=== PATIENT | female | born 1955 | race Caucasian/White ===

== ENCOUNTER 2023-08-06 09:00 | Outpatient (OUT) | payer MEDICARE, SELFPAY ==
--- NOTE | 2023-08-06 09:05 | CT_ITS ---
[address] [address] Patient Name: TALISHA WEBER MRN: [id number] date: 1955 Sex: F Assigned Patient Location: RAD Current Patient Location: RAD Accession/Order Number: [id number] Exam Date: 08/06/2023 09:32 Report Date: 08/06/2023 10:58 At the request of: LILY COWART Procedure: CT lung screening low-dose EXAMINATION: CT lung screening low-dose HISTORY: Forner Smoker Z87.891 COMPARISON: No relevant comparison available. TECHNIQUE: Axial, Coronal, and Sagittal images were created without the administration of IV contrast material. Dose reduction techniques were achieved by using automated exposure control and/or adjustment of mA and/or kV according to patient size and/or use of iterative reconstruction technique. FINDINGS: LUNGS: Scattered subcentimeter solid pulmonary nodules the largest is identified in the right upper lobe axial image 51 measuring 4.4 mm in diameter and left upper lobe axial image 68 measuring 6 x 4 mm PLEURA: No mass, effusion, or pneumothorax. VASCULATURE: No abnormality. LEANDER: No mass or pathologic adenopathy. MEDIASTINUM: No mass or pathologic adenopathy. CARDIAC: No enlargement or pericardial effusion. Heavy coronary atherosclerosis AORTA: No aortic aneurysm. Mild to moderate atherosclerosis CHEST WALL: No mass or axillary adenopathy BONES: No bone lesion or fracture. Dextrocurvature of the thoracic spine moderate degenerative change. Left shoulder reverse arthroplasty LIMITED ABDOMEN: No suspicious findings. Limited images of the upper abdomen. OTHER: Negative. CT/CT lung screening low-dose IMPRESSION: LUNG SCREENING: Lung-RADS Category 2- Benign Appearance or Behavior. Nodules with a very low likelihood of becoming a clinically active cancer due to size or lack of growth. 2. Continue annual screening with LDCT in 12 months. Electronically authenticated by: ANAND NORRIS Date: 08/06/2023 10:58
--- NOTE | 2023-08-06 09:05 | MM_ITS ---
Patient: TALISHA WEBER Exam Date: 08/06/2023 : 1955 Gender:F Ordering : DR LILY COWART M.D. Admission #: [id number] Family : Order #: [id number] CLICK HERE TO VIEW EXAM RADIOLOGY REPORT PROCEDURE: MM TOMOSYNTHESIS SCREENING BI COMPARISON: MG MAMM SCREEN NELLY W CAD, 08/06/2020. MG MAMM SCREEN NELLY W CAD, 06/06/2019. INDICATIONS: Screening Calculator Name NCI Breast Cancer Risk Assessment Tool 5 Year Breast Cancer Risk Not Reported. Lifetime Breast Cancer Risk Not Reported. Personal Breast Cancer No Personal Ovarian Cancer No Treatments None Family Cancers None LOCATION: [facility] BREAST COMPOSITION: Almost entirely fatty. FINDINGS: DIAGNOSTIC CATEGORY 1--NEGATIVE. RIGHT BREAST: No significant suspicious finding. No significant change has occurred. LEFT BREAST: No significant suspicious finding. No significant change has occurred. RECOMMENDATIONS: ROUTINE MAMMOGRAM AND CLINICAL EVALUATION IN 12 MONTHS. PLEASE NOTE: A NORMAL MAMMOGRAM DOES NOT EXCLUDE THE POSSIBILITY OF BREAST CANCER. A CLINICALLY SUSPICIOUS PALPABLE LUMP SHOULD BE BIOPSIED. Dictated by: Brendan Whitney M.D. on 08/06/2023 at 11:48 Approved by: Brendan Whitney M.D. on 08/06/2023 at 11:55
--- NOTE | 2023-08-06 09:24 | XR_ITS ---
[address] [address] Patient Name: TALISHA WEBER MRN: [id number] date: 1955 Sex: F Assigned Patient Location: [facility] Current Patient Location: RAD Accession/Order Number: [id number] Exam Date: 08/06/2023 09:18 Report Date: 08/06/2023 09:46 At the request of: LILY COWART Procedure: XR DEXA axial skeleton EXAMINATION: XR DEXA axial skeleton HISTORY: Primary Ovarian Failure E28.30 COMPARISON: DEXA bone densitometry 09/02/2018 TECHNIQUE: Dual-energy X-ray absorptiometry (DXA) was performed. FINDINGS: SPINE ANALYSIS: Average bone mineral density is 1.260 g/cm2. T-score (standard deviation relative to young adult mean): 0.7 . +3.7% change since prior study. HIP ANALYSIS: Lowest bone mineral density is within the left femoral trochanter, 0.477 g/cm2. T-score (standard deviation relative to young adult mean): -3.3 . +8.5% change since prior study. XR/XR DEXA axial skeleton IMPRESSION: World [employer] Organization Classification: Osteoporosis - High Fracture Risk Electronically authenticated by: BAILEY ANDERSON Date: 08/06/2023 09:46
== END 2023-08-06 09:01 | disposition home or self-care (01) ==
LOC: RAD 09:00
PROVIDERS: PCP Internal Medicine; Visit Provider Internal Medicine
DX: E28.39 Other primary ovarian failure (principal); Z87.891 Personal history of nicotine dependence; Z12.31 Encounter for screening mammogram for malignant neoplasm of breast; M81.0 Age-related osteoporosis without current pathological fracture
CPT/HCPCS: 71271; 77063; 77067; 77080

== ENCOUNTER 2024-12-18 07:13 | Emergency (ER) | payer MEDICARE, SELFPAY ==
[2024-12-18 07:20] VITALS: BP 180/100; PULSE 77; TEMP 36.5; O2SAT 97; BMI 27.3
--- NOTE | 2024-12-18 07:28 | ECG_ITS ---
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
--- NOTE | 2024-12-18 07:29 | XR_ITS ---
The [address] [address] Patient Name: TALISHA WEBER MRN: [id number] date: 1955 Sex: F Assigned Patient Location: ER Current Patient Location: ER Accession/Order Number: [id number] Exam Date: 12/18/2024 07:50 Report Date: 12/18/2024 08:00 At the request of: BILLY RODRIGUEZ Procedure: XR chest 1V EXAMINATION: XR chest 1V HISTORY: pain COMPARISON: None TECHNIQUE: AP portable FINDINGS: LUNGS: No significant pulmonary parenchymal abnormalities. VASCULATURE: No increased pulmonary vasculature. PLEURA: No pneumothorax, effusion, or pleural thickening. CARDIAC: No cardiomegaly or cardiac silhouette abnormality. MEDIASTINUM: No visible mass or adenopathy. Aortic atherosclerosis BONES: No fracture or visible bone lesion. [Vertebral arthroplasty OTHER: Negative. XR/XR chest 1V IMPRESSION: No acute cardiopulmonary process Electronically authenticated by: ANAND NORRIS Date: 12/18/2024 08:00
--- NOTE | 2024-12-18 07:29 | ED_ITS ---
HPI HPI - General Adult General Chief complaint: Back Pain/Injury Stated complaint: R BACK PAIN, R SIDE RIB PAIN, R SHOULDER PAIN Time Seen by Provider: 12/18/24 07:15 Source: patient and family Mode of arrival: walk-in History of Present Illness HPI narrative: 69-year-old female presents for pain in her thoracic back area which goes around her right side towards the front. She has had this for 4 days and there was no injury. She apparently was admitted at another hospital 4 days ago and kept overnight and tests were run and then she was discharged the next day. She went back there today and they put on a lidocaine patch and they discharged her. No fever cough or vomiting. She does not complain of abdominal pain. Related Data Home Medications ?Medication ?Instructions ?Recorded ?Confirmed budesonide-formoterol HFA 160 1 inh inhalation Q12H 12/18/24 12/18/24 mcg-4.5 mcg/actuation aerosol inhaler (Breyna) bumetanide 1 mg tablet 1 mg PO DAILY 12/18/24 12/18/24 bupropion HCl 150 mg tablet,12 hr 150 mg PO Q12H 12/18/24 12/18/24 sustained-release rdcdgusieh-knyehmwuivzar-rduwljal tab 12/18/24 50 mg-325 mg-40 mg tablet cholecalciferol (vitamin D3) 1,250 1,250 mcg PO .Weekly 12/18/24 12/18/24 mcg (50,000 unit) capsule cyanocobalamin (vitamin B-12) 1,000 mcg IM .Monthly 12/18/24 12/18/24 1,000 mcg/mL injection solution denosumab 60 mg/mL subcutaneous 60 mg subcut Q6M 12/18/24 12/18/24 syringe (Prolia) fluoxetine 20 mg capsule 20 mg PO DAILY 12/18/24 12/18/24 lisinopril 10 mg tablet 10 mg PO DAILY 12/18/24 12/18/24 omeprazole 40 mg capsule,delayed 40 mg PO DAILY 12/18/24 12/18/24 release oxybutynin chloride 5 mg tablet 5 mg PO Q12H 12/18/24 12/18/24 Previous Rx's ?Medication ?Instructions ?Recorded methocarbamol 500 mg tablet 500 mg PO Q8H PRN pain #20 tabs 12/18/24 Allergies Allergy/AdvReac Type Severity Reaction Status Date / Time No Known Drug Allergies Allergy Verified 12/18/24 07:20 Opioid HPI Opioid Management Most Recent Opioid Data: No Data to Display Review of Systems ROS Narrative A ten point review of systems is negative except as noted above. PFSH PFSH Social History Little interest or pleasure in doing things: not at all Feeling down, depressed, or hopeless: not at all Exam Narrative Exam Narrative: Nurses note and vital signs reviewed and patient is not hypoxic. General: The patient appears well and in no apparent distress. Skin: Warm, dry, no pallor noted. There is no rash noted. Head: Normocephalic, atraumatic Eye: Normal conjunctiva, no drainage Ears, Nose, Mouth, and Throat: oral mucosa is moist. Nares patent. Cardiovascular: Regular Rate and Rhythm Respiratory: Patient is in no distress, no accessory muscle use, lungs are clear to auscultation, no wheezing, rales or rhonchi Back: No bruise or rash or focal area of tenderness to palpation. No erythema. GI: Soft and nontender Musculoskeletal: The patient has no evidence of calf tenderness, no pitting edema, symmetrical pulses noted bilaterally Neurological: A&O, normal speech Psychiatric: Cooperative Constitutional Vital Signs, click to edit/add: Last Vital Signs Temp 97.7 F 12/18/24 07:20 Pulse 81 12/18/24 08:20 Resp 20 12/18/24 08:20 BP 180/84 H 12/18/24 08:20 Pulse Ox 96 12/18/24 08:20 O2 Del Method Room Air 12/18/24 08:20 Course Vital Signs Vital signs: Vital Signs Temperature 97.7 F 12/18/24 07:20 Pulse Rate 77 12/18/24 07:20 Respiratory Rate 20 12/18/24 07:20 Blood Pressure 180/100 H 12/18/24 07:20 Pulse Oximetry 97 12/18/24 07:20 Oxygen Delivery Method Room Air 12/18/24 07:20 Temperature 97.7 F 12/18/24 07:20 Pulse Rate 81 12/18/24 08:20 Respiratory Rate 20 12/18/24 08:20 Blood Pressure 180/84 H 12/18/24 08:20 Pulse Oximetry 96 12/18/24 08:20 Oxygen Delivery Method Room Air 12/18/24 08:20 Medical Decision Making MDM Narrative Medical decision making narrative: I obtained records from [facility]. She had negative CTA chest and abdomen. Her workup here is negative as well including troponin. My clinical impression is that this is musculoskeletal. Treatment diagnosis and follow-up were discussed with the patient. Differential Diagnosis Differential Diagnosis: Muscle strain, pneumothorax, pulmonary embolism, aneurysm Medical Records Medical records reviewed: Yes I reviewed the patient's medical records Lab Data Lab results reviewed: Yes I reviewed the patient's lab results Labs: Lab Results 12/18/24 Range/Units 07:43 WBC 5.2 (4.0-11.0) 10^3/uL RBC 4.96 (4.20-5.40) 10^6/uL Hgb 14.3 (12.0-16.0) g/dL Hct 45.1 (36.0-48.0) % MCV 90.9 (81.0-99.0) fL MCH 28.8 (26.7-34.0) pg MCHC 31.7 (29.9-35.2) g/dL RDW 13.7 (11.0-15.0) % Plt Count 178 (150-450) 10^3/uL MPV 10.5 (9.5-13.5) fL Neut % (Auto) 51.2 (43.0-75.0) % Lymph % (Auto) 38.7 (20.5-60.0) % [place] % (Auto) 5.9 (1.7-12.0) % Eos % (Auto) 3.4 (0.9-7.0) % Baso % (Auto) 0.6 (0.2-2.0) % Neut # (Auto) 2.7 (1.4-6.5) 10^3/uL Lymph # (Auto) 2.0 (1.2-3.8) 10^3/uL [place] # (Auto) 0.3 (0.3-0.8) 10^3/uL Eos # (Auto) 0.2 (0.0-0.7) 10^3/uL Baso # (Auto) 0.0 (0.0-0.1) 10^3/uL Abs Immat Gran (auto) 0.01 (0.00-0.03) 10^3/uL Imm/Tot Granulo (auto) 0.2 (0.0-0.5) % Sodium 141 (136-145) mmol/L Potassium 4.9 (3.5-5.1) mmol/L Chloride 104 (98-107) mmol/L Carbon Dioxide 28.1 (21.0-32.0) mmol/L Anion Gap 13.8 BUN 20.0 H (7.0-18.0) mg/dL Creatinine 1.01 (0.55-1.02) mg/dL Est GFR ( Amer) >60 (>=60 mL/min/1.73m^2) Est GFR (Non-Af Amer) 55 L (>=60 mL/min/1.73m^2) BUN/Creatinine Ratio 19.8 Glucose 103 (74-106) mg/dL Calcium 8.7 (8.5-10.1) mg/dL Troponin I High Sens 21.7 (4.0-51.3) pg/mL Imaging Data Chest x-ray: Radiologist's impression: ITS Impressions Chest X-Ray 12/18/24 07:29 IMPRESSION: No acute cardiopulmonary process Electronically authenticated by: ANAND NORRIS Date: 12/18/2024 08:00 ECG Data Attestation: I personally reviewed and interpreted this ECG as follows: (EKG on my interpretation shows sinus rhythm with PVCs) Discharge Plan Discharge Chief Complaint: Back Pain/Injury Clinical Impression: Musculoskeletal pain Patient Disposition: Home, Self-Care Time of Disposition Decision: 09:07 Condition: Good Mode of Transportation: Private Vehicle Prescriptions / Home Meds: New methocarbamol 500 mg tablet 500 mg PO Q8H PRN (Reason: pain) Qty: 20 0RF No Action budesonide-formoterol [Breyna] 160-4.5 mcg/actuation HFA aerosol inhaler 1 inh INHALATION Q12H bumetanide 1 mg tablet 1 mg PO DAILY bupropion HCl 150 mg tablet sustained-release 12 hr 150 mg PO Q12H fdtquuppmx-bwlmxxlyenqbg-uran 50-325-40 mg tablet cholecalciferol (vitamin D3) 1,250 mcg (50,000 unit) capsule 1,250 mcg PO .Weekly cyanocobalamin (vitamin B-12) 1,000 mcg/mL solution 1,000 mcg IM .Monthly Prolia 60 mg/mL syringe 60 mg SUBCUT Q6M fluoxetine 20 mg capsule 20 mg PO DAILY lisinopril 10 mg tablet 10 mg PO DAILY omeprazole 40 mg capsule,delayed release(DR/EC) 40 mg PO DAILY oxybutynin chloride 5 mg tablet 5 mg PO Q12H Print Language: Pakistani Instructions: Musculoskeletal Pain (ED) Referrals: LILY COWART [Primary Care Provider] - 1 week
[2024-12-18 07:50] LABS: Basophils Percent Auto 0.6 % (0.2-2.0); Eosinophils Absolute Auto 0.2 10^3/uL (0.0-0.7); Eosinophils Percent Auto 3.4 % (0.9-7.0); Hematocrit 45.1 % (36.0-48.0); Hemoglobin 14.3 g/dL (12.0-16.0); Immature Granulocytes Abs Auto 0.01 10^3/uL (0.00-0.03); Immature Granulocytes Pct Auto 0.2 % (0.0-0.5); Lymphocytes Percent Auto 38.7 % (20.5-60.0); Mean Corpuscular HGB Conc 31.7 g/dL (29.9-35.2); Mean Corpuscular Hemoglobin 28.8 pg (26.7-34.0); Mean Corpuscular Volume 90.9 fL (81.0-99.0); Mean Platelet Volume 10.5 fL (9.5-13.5); Monocytes Absolute Auto 0.3 10^3/uL (0.3-0.8); Monocytes Percent Auto 5.9 % (1.7-12.0); Neutrophils Absolute Auto 2.7 10^3/uL (1.4-6.5); Neutrophils Percent Auto 51.2 % (43.0-75.0); Platelet Count 178 10^3/uL (150-450); Red Blood Count 4.96 10^6/uL (4.20-5.40); Red Cell Distribution Width 13.7 % (11.0-15.0); White Blood Count 5.2 10^3/uL (4.0-11.0)
[2024-12-18 08:10] LABS: Anion Gap 13.8; BUN Creatinine Ratio 19.8; Calcium 8.7 mg/dL (8.5-10.1); Carbon Dioxide 28.1 mmol/L (21.0-32.0); Chloride 104 mmol/L (98-107); Estimated GFR (African America >60 (>=60 mL/min/1.73m^2); Estimated GFR (Non-African Ame 55 (>=60 mL/min/1.73m^2); Glucose 103 mg/dL (74-106); Potassium 4.9 mmol/L (3.5-5.1); Sodium 141 mmol/L (136-145)
[2024-12-18 08:11] LABS: Troponin I High Sensitivity 21.7 pg/mL (4.0-51.3)
[2024-12-18 08:20] VITALS: BP 180/84; PULSE 81; O2SAT 96
[2024-12-18] MEDS: KETOROLAC TROMETHAMINE 30 MG/ML VIAL IVP (08:41)
== END 2024-12-18 09:18 | disposition home or self-care (01) ==
PROVIDERS: Emergency Provider Emergency Medicine; PCP Internal Medicine
DX: M79.18 Myalgia, other site (principal)
CPT/HCPCS: 36415; 71045; 80048; 84484; 85025; 93005; 96374; 99285; J1885